=== PATIENT | male | born 1970 | race Caucasian/White ===

== ENCOUNTER 2024-06-25 13:17 | Outpatient (OUT) | payer MEDICAID, SELFPAY ==
--- NOTE | 2024-06-25 13:27 | MR_ITS ---
[address] [address] Patient Name: RICHELLE YANG MRN: [id number] date: 1970 Sex: M Assigned Patient Location: MRI Current Patient Location: MRI Accession/Order Number: [id number] Exam Date: 06/25/2024 16:55 Report Date: 06/25/2024 22:52 At the request of: EVELINA YANG Procedure: MR ankle RT wo con MRI Right Ankle without contrast TECHNIQUE: Multiplanar T1 and T2-weighted imaging of the LEFT ankle obtained without contrast. 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 History of osteochondritis dissecans of the right ankle. Chronic right ankle pain. No injury CLINICAL QUESTION: FINDINGS: SYNDESMOSIS: Adequate alignment of the distal tibia and fibula THE BONE MARROW: Normal fatty marrow without marrow infiltrative changes. No bone marrow edema. FRACTURE: No fracture identified. LATERAL COLLATERAL LIGAMENT COMPLEX: Intact anterior talofibular ligament. Intact calcaneofibular ligament. Intact posterior talofibular ligament. ANTEROLATERAL COMPARTMENT: No anterolateral impingement findings. PERONEAL TENDONS: Normal peroneal brevis tendon adjacent to the bone. No longitudinal split tear. Normal appearance of the peroneal longus tendon. Normal low signal tendon. Intact superior peroneal retinaculum with normal alignment of the peroneal brevis tendon. Normal appearance of the peroneal tendons behind the retromalleolar grove of the lateral malleolus. No surrounding fluid. No hypertrophy of the peroneal tubercle of the lateral calcaneus BIFURCATE LIGAMENT: Calcaneocuboid and calcaneonavicular ligaments of the bifurcate ligament are intact. The anterior process of the calcaneus is intact without bone marrow edematous changes. Intact the midtarsal joint. DELTOID LIGAMENT: The superficial and deep components of the medial collateral deltoid ligaments are intact. SPRING LIGAMENT: The spring ligament normally intersects the posterior tibial tendon in the talar head with coronal view no findings of tear or thickening. Specifically the superior medial segment is preserved. POSTERIOR TIBIAL TENDON: Normal orientation the posterior tibial tendon behind of the medial malleolus inserting into the navicular bone. Small amount of normal fluid is seen within the tendon sheath which terminates 1-2 cm proximal to the navicular insertion. No distal paratendinitis of the tendon identified. Unremarkable heterogeneous signal intensity of the distal tendon identified. SINUS TARSI: Normal fat-containing sinus tarsi identified without evidence of posterior tibial tendon dysfunction, talocalcaneal or fibulocalcaneal impingement identified. FLEXOR DIGITORUM LONGUS: Intact. FLEXOR HALLUCIS LONGUS: Intact . Fluid surrounding the flexor hallucis longus is likely a normal finding suggesting communication of the joint. ACHILLES TENDON: Normal homogeneous low signal. Normal thickness with slight concave anterior surface present. No peritendinous edema. No retrocalcaneal bursitis. No Esvin deformity. Infiltration No tear of the calcaneal insertion or mid substance. Normal Roque's fat-pad. No Achilles tendon insertion enthesophyte. ANTERIOR TIBIAL TENDON:Anterior tibial tendon intact. No surrounding abnormal tendon sheath fluid. PLANTAR FASCIA: 3 fascicles of the plantar fascia are intact. No calcaneal spurring. No reactive bone marrow edema. No adjacent soft tissue edema. MR/MR ankle RT wo con IMPRESSION: No osteochondral defect of the talus. No bone marrow edema. No linear fracture. Small ankle joint effusion. Impression dictated by: Elfego Bui M.D. 06/25/2024 10:52 PM Dictation Location: [email or web address] Electronically authenticated by: [id number] Y Date: 06/25/2024 22:52
== END 2024-06-25 13:18 | disposition home or self-care (01) ==
LOC: MRI 13:22
DX: M19.071 Primary osteoarthritis, right ankle and foot (principal); M93.271 Osteochondritis dissecans, right ankle and joints of right foot; M25.471 Effusion, right ankle
CPT/HCPCS: 73721